=== PATIENT | male | born 1975 | race African-American/Black ===

== ENCOUNTER 2016-07-26 00:16 | Emergency (ER) | payer MEDICAID, OTHER ==
[~2016-07-26] VITALS: Ht 175.3 cm; Wt 127.0 kg
[2016-07-26] MEDS ORDERED: Nitroglycerin 2% oint pkt TOPIC ONE (00:45)
[2016-07-26] MEDS ORDERED: Ketorolac 30mg Inj IV ONE (00:45)
[2016-07-26 01:03] LABS: APPEARANCE,URINE CLEAR; KETONES,URINE 1+ (NEGATIVE); LEUKOCYTE ESTERASE ,URINE NEGATIVE (NEGATIVE); NITRITE,URINE NEGATIVE (NEGATIVE); PH,URINE 6 (4.5-8.0); PROTEIN,URINE NEGATIVE (NEGATIVE); UROBILINOGEN,URINE 1 MG/DL (0.0-1.0)
[2016-07-26 01:11] VITALS: BP 153/98
[2016-07-26 01:21] LABS: TROPONIN I < 0.30 ng/mL (<=0.30)
[2016-07-26 01:22] LABS: BASOPHILS % (AUTO) 1.4 % (0.0-2.0); EOSINOPHILS % (AUTO) 1.6 % (0.0-3.0); MEAN CORPUSCULAR HGB CONC 33.4 G/DL (32.0-36.0); MEAN CORPUSCULAR VOLUME 93 FL (80-99); MEAN PLATELET VOLUME 8.5 FL (6.5-10.1); MONOCYTES % (AUTO) 7.2 % (1.0-10.0); NEUTROPHILS % (AUTO) 68.8 % (45.0-75.0); PLATELET COUNT 276 K/UL (150-450); RED CELL DISTRIBUTION WIDTH 10.7 % (11.6-14.8); WHITE BLOOD COUNT 10.9 K/UL (4.8-10.8)
[2016-07-26 01:24] LABS: ALANINE AMINOTRANSFERASE 16 U/L (3-41); ALBUMIN/GLOBULIN RATIO 1.3 (1.0-2.7); ANION GAP 16 (5-15); ASPARTATE AMINO TRANSFERASE 14 U/L (5-40); CALCIUM 9.6 mg/dL (8.6-10.2); CARBON DIOXIDE 26 mEQ/L (20-30); CHLORIDE 94 mEQ/L (98-107); GLOMERULAR FILTRATION RATE > 60 mL/min (>60); HEMOLYSIS 9; SODIUM 136 mEQ/L (135-145); TOTAL PROTEIN 7.6 g/dL (6.6-8.7)
--- NOTE | 2016-07-26 02:24 | Emergency Room Report ---
History of Present Illness General Chief Complaint: Chest Pain Present Illness [facility] Chest pain started this AM. Non-exertional, sharp, 6/10, not radiate. No diaphoresis, NV. Had before. Also has R shoulder pain. Worsened with movement. 8/10, aching/sharp. Not radiate. Tender to palpation. No trauma. Had eval at hosp - told needed further studies (1 month ago). Not follow up. RF + pre-diabetic. No fever, cough, dyspnea, rashes, PAIZ, change bowels. Allergies: Coded Allergies: No Known Allergies (Unverified , 12/05/13) Patient History Past Medical History: see triage record Social History: Denies: smoking Social History Narrative culinary student Review of Systems All Other Systems: negative except mentioned in HPI Physical Exam Vital Signs Date Time Temp Pulse Resp B/P Pulse Ox O2 Delivery O2 Flow Rate FiO2 07/26/16 00:20 99.0 82 18 172/101 96 Room Air Sp02 EP Interpretation: reviewed, normal General Appearance: well appearing, no apparent distress, GCS 15 Head: normocephalic Eyes: bilateral eye PERRL, bilateral eye normal inspection ENT: moist mucus membranes Neck: supple Respiratory: lungs clear, normal breath sounds Cardiovascular #1: regular rate, rhythm Cardiovascular #2: 2+ radial (R) Gastrointestinal: normal inspection, normal bowel sounds, non tender, no mass, non-distended Musculoskeletal: back normal, gait/station normal, normal range of motion, other - tenderness to palpation R shoulder with some pain with active ROM and abduction Neurologic: alert, oriented x3 Psychiatric: mood/affect normal Skin: normal inspection, warm/dry, other - no warmth over shoulder Medical Decision Making Diagnostic Impression: Primary Impression: Chest pain Qualified Codes: R07.9 - Chest pain, unspecified Additional Impression: Right shoulder pain Qualified Codes: M25.511 - Pain in right shoulder ER Course Patient presents with atypical chest pain. DDx: ACS, AMI, GERD, pleurisy amongst others. Needs eval for ACS. Also has R shoulder pain. This needs eval with x-ray. Will treat with analgesics. Labs exclude myocardial damage. EKG normal. CXR normal. Improved with treatment. Doubt cardiac etiology. Patient stable for outpatient observation and treatment. Labs Test 07/26/16 00:45 White Blood Count 10.9 K/UL (4.8-10.8) Red Blood Count 5.70 M/UL (4.70-6.10) Hemoglobin 17.7 G/DL (14.2-18.0) Hematocrit 53.0 % (42.0-52.0) Mean Corpuscular Volume 93 FL (80-99) Mean Corpuscular Hemoglobin 31.0 PG (27.0-31.0) Mean Corpuscular Hemoglobin Concent 33.4 G/DL (32.0-36.0) Red Cell Distribution Width 10.7 % (11.6-14.8) Platelet Count 276 K/UL (150-450) Mean Platelet Volume 8.5 FL (6.5-10.1) Neutrophils (%) (Auto) 68.8 % (45.0-75.0) Lymphocytes (%) (Auto) 21.0 % (20.0-45.0) Monocytes (%) (Auto) 7.2 % (1.0-10.0) Eosinophils (%) (Auto) 1.6 % (0.0-3.0) Basophils (%) (Auto) 1.4 % (0.0-2.0) Prothrombin Time 10.0 SEC (9.30-11.50) Prothromb Time International Ratio 1.0 (0.9-1.1) Activated Partial Thromboplast Time 29 SEC (23-33) Urine Color Yellow Urine Appearance Clear Urine pH 6 (4.5-8.0) Urine Specific [place] 1.025 (1.005-1.035) Urine Protein Negative (NEGATIVE) Urine Glucose (UA) 2+ (NEGATIVE) Urine Ketones 1+ (NEGATIVE) Urine Occult Blood Negative (NEGATIVE) Urine Nitrite Negative (NEGATIVE) Urine Bilirubin Negative (NEGATIVE) Urine Urobilinogen 1 MG/DL (0.0-1.0) Urine Leukocyte Esterase Negative (NEGATIVE) Sodium Level 136 mEQ/L (135-145) Potassium Level 4.0 mEQ/L (3.4-4.9) Chloride Level 94 mEQ/L (98-107) Carbon Dioxide Level 26 mEQ/L (20-30) Anion Gap 16 (5-15) Blood Urea Nitrogen 13 mg/dL (7-23) Creatinine 1.0 mg/dL (0.7-1.2) Estimat Glomerular Filtration Rate > 60 mL/min (>60) Glucose Level 199 mg/dL (74-106) Calcium Level 9.6 mg/dL (8.6-10.2) Total Bilirubin 0.4 mg/dL (0.0-1.2) Aspartate Amino Transf (AST/SGOT) 14 U/L (5-40) Alanine Aminotransferase (ALT/SGPT) 16 U/L (3-41) Alkaline Phosphatase 69 U/L (40-129) Total Creatine Kinase 99 U/L (38-174) Troponin I < 0.30 ng/mL (<=0.30) Pro-B-Type Natriuretic Peptide 47 pg/mL (0-125) Total Protein 7.6 g/dL (6.6-8.7) Albumin 4.3 g/dL (3.5-5.2) Globulin 3.3 g/dL Albumin/Globulin Ratio 1.3 (1.0-2.7) Urine Opiates Screen Negative (NEGATIVE) Urine Barbiturates Screen Negative (NEGATIVE) Phencyclidine (PCP) Screen Negative (NEGATIVE) Urine Amphetamines Screen Negative (NEGATIVE) Urine Benzodiazepines Screen Negative (NEGATIVE) Urine Cocaine Screen Negative (NEGATIVE) Urine Marijuana (THC) Screen Negative (NEGATIVE) EKG Diagnostic Results Rate: normal Rhythm: NSR ST Segments: no acute changes Rhythm Strip Diag. Results EP Interpretation: yes Rhythm: NSR, no PVC's, no ectopy Chest X-Ray Diagnostic Results EP Interpretation: Yes Findings: no consolidation, no effusion, no pneumothorax, no acute cardiopulmonary disease Number of Views: 1 Other X-Ray Diagnostic Results Other X-Ray Diagnostic Results : X-Ray Ordered: R shoulder EP Interpretation: Yes Findings: no fractures, no dislocation, no soft tissue swelling Number of Views: 3 Last Vital Signs Date Time Temp Pulse Resp B/P Pulse Ox O2 Delivery O2 Flow Rate FiO2 07/26/16 03:10 77 18 158/88 94 Room Air 77 07/26/16 03:04 98.0 VS against PE. Status: improved Disposition: HOME, SELF-CARE Condition: Improved Scripts Ibuprofen* (MOTRIN*) 600 Mg Tablet 600 MG ORAL Q6H Y for For Pain, #20 TAB Prov: Jean Marie Casper M.D. 07/26/16 Tramadol Hcl* (ULTRAM*) 50 Mg Tablet 50 MG ORAL Q6H Y for For Pain, #14 TAB 0 Refills Prov: Jean Marie Casper M.D. 07/26/16 Referrals: [facility]ERR[facility] (PCP) Jean Marie Casper M.D. Jul 26, 2016 02:24
[2016-07-26 03:04] VITALS: BP 158/88
[2016-07-26] MEDS ORDERED: IBUPROFEN600 MG ORAL (03:04)
[2016-07-26] MEDS ORDERED: TRAMADOL HCL50 MG ORAL (03:04)
[2016-07-26 03:10] VITALS: BP 158/88
--- NOTE | 2016-07-26 09:19 | Diagnostic Imaging Report ---
Indications: Shoulder pain Technique: 3 views of the right shoulder Findings: Comparison: None No fracture, dislocation, lytic destruction, periosteal reaction, surrounding soft tissue swelling, or other acute change is demonstrated. Small spur inferior margin distal end right clavicle. No deformity, alignment abnormality, additional arthritic change, soft tissue calcification, or other chronic change is demonstrated. IMPRESSION: Minimal inferior margin spurring distal end right clavicle. Rotator cuff impingement not excludable. Otherwise negative right shoulder series.
--- NOTE | 2016-07-26 21:27 | Cardiology Report ---
APPROVED REPORT EKG Measurement Heart [id number] Normal sinus rhythm Normal ECG
--- NOTE | 2016-07-27 15:59 | Diagnostic Imaging Report ---
Indication: Chest pain Technique: Single portable AP view of the chest. Findings: Comparison: 12/05/2013 The bones and extra pulmonary soft tissues, cardiomediastinal silhouette, pulmonary vasculature and parenchyma, and pleural surfaces remain unremarkable. IMPRESSION: Negative portable AP chest, unchanged.
== END 2016-07-26 03:12 | disposition home or self-care (01) ==
LOC: EMR 01:49
DX: R07.89 Other chest pain (principal); M25.511 Pain in right shoulder
CPT/HCPCS: 36415; 71010; 73030; 80053; 80300; 81003; 82550; 83880; 84484; 85025; 85610; 85730; 93005; 96374; 99284; J1885

== ENCOUNTER 2017-01-02 14:43 | Emergency (ER) | payer OTHER ==
[~2017-01-02] VITALS: Ht 175.3 cm; Wt 122.5 kg
[~2017-01-02 14:43] MED LIST: IBUPROFEN600 MG ORAL; TRAMADOL HCL50 MG ORAL
[2017-01-02 14:47] VITALS: BP 147/97
[2017-01-02] MEDS ORDERED: NKM (14:47)
--- NOTE | 2017-01-02 15:23 | Emergency Room Report ---
History of Present Illness General Chief Complaint: Upper Respiratory Illness Source: Patient Present Illness HPI 41-year-old male presents emergency department complaining of painful productive cough, fevers, chills, wheezing , nasal congestion and sore throat x3 days he denies taking medications for his symptoms. he does not know if he had a flu vaccination this year patient denies past medical history other than being prediabetic. Pt denies CP at rest, reports pain only with coughing. pt. describes deep or normal inhalation exacerbates coughing, and short breaths do not illicit his cough. Denies ill contacts or recent travel. Denies Palpitations, LOC, AMS, dizziness, Changes in Vision, Sensation, paresthesias, or a sudden severe headache. Allergies: Coded Allergies: No Known Allergies (Unverified , 12/05/13) Patient History Past Medical History: see triage record Past Surgical History: none Pertinent Family History: none Reviewed Nursing Documentation: PMH: Agreed, PSxH: Agreed Nursing Documentation-PMH Past Medical History: No Stated History Review of Systems All Other Systems: negative except mentioned in HPI Physical Exam Vital Signs Date Time Temp Pulse Resp B/P Pulse Ox O2 Delivery O2 Flow Rate FiO2 01/02/17 14:47 98.4 104 18 147/97 96 Room Air Sp02 EP Interpretation: reviewed, abnormal - mild tachycardia 104 bpm General Appearance: no apparent distress, alert, GCS 15, non-toxic Head: normocephalic, atraumatic Eyes: bilateral eye PERRL, bilateral eye normal inspection ENT: hearing grossly normal, normal pharynx, no angioedema, normal voice, TMs + canals normal, uvula midline, moist mucus membranes, pharyngeal erythema, other - no tonsillar exudates Neck: full range of motion, supple/symm/no masses Respiratory: chest non-tender, normal breath sounds, speaking full sentences, wheezing Cardiovascular #1: regular rate, rhythm, no edema, normal capillary refill Musculoskeletal: back normal, gait/station normal, normal range of motion, non- tender Neurologic: alert, oriented x3, responsive, motor strength/tone normal, sensory intact, speech normal Psychiatric: judgement/insight normal, memory normal, mood/affect normal Skin: normal color, no rash, warm/dry, well hydrated Lymphatic: no adenopathy Medical Decision Making PA Attestation Dr. Vargas is my supervising Physician whom patient management has been discussed with. Diagnostic Impression: Primary Impression: Bronchitis ER Course 41-year-old male presents emergency department complaining of productive cough, fevers, chills, wheezing and difficulty breathing x3 days he denies taking any medications for his symptoms he does not know if he had a flu vaccination this year patient denies past medical history other than being prediabetic. Denies ill contacts or recent travel. Denies CP, Palpitations, LOC, AMS, dizziness, Changes in Vision, Sensation, paresthesias, or a sudden severe headache. Ddx considered but are not limited to URI, pneumonia, PE, strep pharyngitis, meningitis, bronchitis Vital signs: Pt. is afebrile, the remaining VS are WNL: initial triage HR was mild tachycardic at 104bpm, however subsequent measurements were of normal rate. H&PE are most consistent with URI- Bronchitis with scant wheezes auscultated bilaterally, no meningeal signs, oropharynx is not involved, no evidence of bacterial infection at this time. due to presence of multiples symptoms and no CP at rest, cardiac cause is unlikely, i do not suspect PE at this time - not consistent with HPI and pt. has other more likely diagnosis. ORDERS: -CXR:No consolidation, effusion, pneumothorax or acute cardiopulmonary findings per soft read in ED by Dr. Vargas ED INTERVENTIONS: -Albuterol Nebulized Treatment. - lung sounds have improved bilaterally after nebulized treatment. d/w pt that he will be treated conservatively for URI/bronchitis, and that I do not feel antibiotics would be of benefit at this time. d/w pt. to return to the ED promptly if he feels his symptoms are becoming worse, or new symptoms develop. - Pt verbalized his understanding, and agreement with this treatment plan. DISCHARGE: At this time pt. is stable for d/c to home. Will provide printed patient care instructions, and any necessary prescriptions. Care plan and follow up instructions have been discussed with the patient prior to discharge. Last Vital Signs Date Time Temp Pulse Resp B/P Pulse Ox O2 Delivery O2 Flow Rate FiO2 01/02/17 14:47 104 18 Room Air 01/02/17 14:47 98.4 147/97 96 Disposition: HOME, SELF-CARE Condition: Stable Scripts Acetaminophen* (TYLENOL EXTRA STRENGTH*) 500 Mg Tablet 500 MG ORAL Q6H, #20 TAB 0 Refills Prov: Michel,Alessandra P.A. 01/02/17 Albuterol Sulfate* (ALBUTEROL SULFATE MDI*) 8.5 Gm Hfa.aer.ad 2 PUFF INH Q3H, #1 INH 0 Refills Prov: Alessandra Michel 01/02/17 Codeine/Promethazine Hcl* (PROMETHAZINE-CODEINE SYRUP*) 118 Ml Syrup 5 ML ORAL Q6H Y for For Cough, #118 ML 0 Refills Prov: Alessandra Michel 01/02/17 Patient Instructions: Upper Respiratory Infection, Adult Additional Instructions: Take medications as directed. Follow up with PCP in 3-5 days Return sooner to ED if new symptoms occur, or current symptoms become worse. - Please note that this Emergency Department Report was dictated using [employer] range operator technology software, occasionally this can lead to erroneous entry secondary to interpretation by the dictation equipment. Alessandra Michel Jan 02, 2017 15:23
[2017-01-02] MEDS ORDERED: Albuterol ud Inhalation HHN ONE (15:30)
[2017-01-02] MEDS ORDERED: ALBUTEROL SULF8.5 GM INH (15:59)
[2017-01-02] MEDS ORDERED: PROMETHAZINE-C118 M1 ORAL (15:59)
[2017-01-02] MEDS ORDERED: TYLENOL EXTRA500 MG ORAL (15:59)
[2017-01-02 16:05] VITALS: BP 133/88
--- NOTE | 2017-01-03 11:05 | Diagnostic Imaging Report ---
Indication: COUGH Technique: One view of the chest Comparison: 07/26/2016 Findings: Lungs and pleural spaces are clear. Heart size is normal. No significant change Impression: No acute process
== END 2017-01-02 16:05 | disposition home or self-care (01) ==
LOC: EMR 15:55
DX: J40 Bronchitis, not specified as acute or chronic (principal)
CPT/HCPCS: 71010; 94640; 99284

== ENCOUNTER 2017-06-08 19:39 | Emergency (ER) | payer MEDICAID, OTHER ==
[~2017-06-08] VITALS: Ht 175.3 cm; Wt 127.0 kg
[~2017-06-08 19:39] MED LIST changes: +ALBUTEROL SULF8.5 GM INH; +NKM; +PROMETHAZINE-C118 M1 ORAL; +TYLENOL EXTRA500 MG ORAL
[2017-06-08 20:33] VITALS: BP 159/114
--- NOTE | 2017-06-08 20:38 | Emergency Room Report ---
History of Present Illness General Chief Complaint: Chest Pain Source: Patient Present Illness HPI 41-year-old male no significant past medical history p/w chest pain for 2 days. Chest pain started while at rest. Localized to substernal area, no radiation to back or other areas, sharp in nature, gradual in onset, last about 10-15 minutes , multiple episodes. Occurred on rest and on exertion. Denies SOB. Denies palpitations, diaphoresis, n/v. This is the first occurrence of chest pain. Denies fever, chills, cough, abd pain. Denies trauma. Patient states that he has had a stress test in the past but does not know the results Patient has never had a cardiac catheterization. Denies smoking, no family history of cardiac disease at a young age. Allergies: Coded Allergies: No Known Allergies (Unverified , 12/05/13) Patient History Past Medical History: see triage record Past Surgical History: none Pertinent Family History: none Reviewed Nursing Documentation: PMH: Agreed, PSxH: Agreed Nursing Documentation-PMH Past Medical History: No Stated History Review of Systems All Other Systems: negative except mentioned in HPI Physical Exam Vital Signs Date Time Temp Pulse Resp B/P (MAP) Pulse Ox O2 Delivery O2 Flow Rate FiO2 06/08/17 19:52 97.9 84 20 159/114 98 Room Air Sp02 EP Interpretation: reviewed, normal General Appearance: normal inspection, well appearing, no apparent distress, alert, GCS 15, non-toxic, other - Does not appear to be in pain Head: normocephalic, atraumatic Eyes: bilateral eye normal inspection, bilateral eye PERRL, bilateral eye EOMI ENT: normal ENT inspection, normal pharynx, normal voice, moist mucus membranes Neck: normal inspection, full range of motion, supple Respiratory: normal inspection, lungs clear, normal breath sounds, no respiratory distress, no retraction, no wheezing, speaking full sentences, chest symmetrical Cardiovascular #1: normal inspection, regular rate, rhythm, normal capillary refill Cardiovascular #2: 2+ radial (R), 2+ radial (L) Gastrointestinal: normal inspection, non tender, soft, non-distended, no guarding Musculoskeletal: normal inspection, back normal, normal range of motion, non- tender Neurologic: normal inspection, alert, oriented x3, responsive, motor strength/ tone normal, sensory intact, normal gait, speech normal Psychiatric: normal inspection, judgement/insight normal, memory normal Skin: normal inspection, normal color, no rash, warm/dry, well hydrated, normal turgor Medical Decision Making Diagnostic Impression: Primary Impression: Chest pain ER Course 41-year-old male, chest pain for 2 days DDX: Musculoskeletal versus ACS vs. CHF vs. pneumonia vs. gastritis/GERD vs. pneumothorax PE on differential however at this time there are other more likely diagnoses. The patient appears nontoxic at this time, does not appear to be in pain, not hypertensive, no radiation to back, unlikely to have aortic dissection Plan: IV access, obtain labs including troponin, EKG, CXR ASA ER course: Labs: troponin negative Patient given ASA. Patient remained chest pain free during ED stay. Sleeping comfortably Disposition: Patient will be discharged to home. Strict precautions discussed with patient on when to emergently return to the ED : this includes worsening/severe chest pain, palpitations, shortness of breath, syncopal episodes, fever or chills, which may indicate severe illness. Patient verbalized understanding. Patient instructed to follow up with their PMD within the next 2 days. Patient also instructed to follow up with a doper within 2 days for possible outpatient stress test. Patient agrees with plan. Please note that this Emergency Department Report was dictated using [employer] machine operator technology software, occasionally this can lead to erroneous entry secondary to interpretation by the dictation equipment. EKG Diagnostic Results EP Interpretation: Yes Rate: normal Rhythm: NSR ST Segments: Q waves III ASA given to patient: no Rhythm Strip EP Interpretation: Yes Rate: 70 Rhythm: NSR, no PVCs, no ectopy Chest X-ray CXR: Ordered: Yes 1 view Indication: Chest pain EP interpretation: Yes Interpretation: No consolidation, no effusion, no PTX, no acute cardiopulmonary disease Impression: No acute disease Electronically signed by Aydee Jones MD Laboratory Tests Test 06/08/17 20:26 White Blood Count 5.9 K/UL (4.8-10.8) Red Blood Count 5.35 M/UL (4.70-6.10) Hemoglobin 16.9 G/DL (14.2-18.0) Hematocrit 50.6 % (42.0-52.0) Mean Corpuscular Volume 95 FL (80-99) Mean Corpuscular Hemoglobin 31.7 PG (27.0-31.0) H Mean Corpuscular Hemoglobin Concent 33.5 G/DL (32.0-36.0) Red Cell Distribution Width 10.6 % (11.6-14.8) L Platelet Count 210 K/UL (150-450) Mean Platelet Volume 8.9 FL (6.5-10.1) Neutrophils (%) (Auto) 50.4 % (45.0-75.0) Lymphocytes (%) (Auto) 35.5 % (20.0-45.0) Monocytes (%) (Auto) 8.8 % (1.0-10.0) Eosinophils (%) (Auto) 3.4 % (0.0-3.0) H Basophils (%) (Auto) 1.9 % (0.0-2.0) Urine Color Pale yellow Urine Appearance Clear Urine pH 5 (4.5-8.0) Urine Specific [place] 1.020 (1.005-1.035) Urine Protein Negative (NEGATIVE) Urine Glucose (UA) 4+ (NEGATIVE) H Urine Ketones 1+ (NEGATIVE) H Urine Occult Blood 1+ (NEGATIVE) H Urine Nitrite Negative (NEGATIVE) Urine Bilirubin Negative (NEGATIVE) Urine Urobilinogen Normal MG/DL (0.0-1.0) Urine Leukocyte Esterase Negative (NEGATIVE) Urine RBC 0-2 /HPF (0 - 0) H Urine WBC 0-2 /HPF (0 - 0) Urine Squamous Epithelial Cells None /LPF (NONE/OCC) Urine Bacteria Few /HPF (NONE) Sodium Level 135 MMOL/L (136-145) L Potassium Level 3.8 MMOL/L (3.5-5.1) Chloride Level 98 MMOL/L (98-107) Carbon Dioxide Level 28 MMOL/L (21-32) Anion Gap 9 mmol/L (5-15) Blood Urea Nitrogen 15 mg/dL (7-18) Creatinine 1.2 MG/DL (0.55-1.30) Estimate Glomerular Filtration Rate > 60 mL/min (>60) Glucose Level 349 MG/DL (74-106) H Calcium Level 9.0 MG/DL (8.5-10.1) Total Bilirubin 0.5 MG/DL (0.2-1.0) Aspartate Amino Transferase (AST) 12 U/L (15-37) L Alanine Aminotransferase (ALT) 27 U/L (12-78) Alkaline Phosphatase 77 U/L (46-116) Troponin I 0.000 ng/mL (0.000-0.056) Pro-B-Type Natriuretic Peptide 10 pg/mL (0-125) Total Protein 7.4 G/DL (6.4-8.2) Albumin 3.7 G/DL (3.4-5.0) Globulin 3.7 g/dL Albumin/Globulin Ratio 1.0 (1.0-2.7) Last Vital Signs Date Time Temp Pulse Resp B/P (MAP) Pulse Ox O2 Delivery O2 Flow Rate FiO2 06/08/17 20:33 97.9 20 159/114 98 Room Air 06/08/17 20:33 84 Aydee Jones M.D. Jun 08, 2017 20:38
[2017-06-08 20:52] LABS: BASOPHILS % (AUTO) 1.9 % (0.0-2.0); EOSINOPHILS % (AUTO) 3.4 % (0.0-3.0); LYMPHOCYTES % (AUTO) 35.5 % (20.0-45.0); MEAN CORPUSCULAR HEMOGLOBIN 31.7 PG (27.0-31.0); MEAN CORPUSCULAR HGB CONC 33.5 G/DL (32.0-36.0); MEAN CORPUSCULAR VOLUME 95 FL (80-99); MEAN PLATELET VOLUME 8.9 FL (6.5-10.1); MONOCYTES % (AUTO) 8.8 % (1.0-10.0); NEUTROPHILS % (AUTO) 50.4 % (45.0-75.0); PLATELET COUNT 210 K/UL (150-450); RED BLOOD COUNT 5.35 M/UL (4.70-6.10); RED CELL DISTRIBUTION WIDTH 10.6 % (11.6-14.8); WHITE BLOOD COUNT 5.9 K/UL (4.8-10.8)
[2017-06-08 20:53] LABS: APPEARANCE,URINE CLEAR; KETONES,URINE 1+ (NEGATIVE); LEUKOCYTE ESTERASE ,URINE NEGATIVE (NEGATIVE); NITRITE,URINE NEGATIVE (NEGATIVE); PH,URINE 5 (4.5-8.0); PROTEIN,URINE NEGATIVE (NEGATIVE); UROBILINOGEN,URINE NORMAL MG/DL (0.0-1.0)
[2017-06-08 20:56] LABS: ANION GAP 9 mmol/L (5-15); CARBON DIOXIDE 28 MMOL/L (21-32); CHLORIDE 98 MMOL/L (98-107); CREATININE 1.2 MG/DL (0.55-1.30); GLOMERULAR FILTRATION RATE > 60 mL/min (>60); POTASSIUM 3.8 MMOL/L (3.5-5.1); SODIUM 135 MMOL/L (136-145)
[2017-06-08 21:07] LABS: ALANINE AMINOTRANSFERASE 27 U/L (12-78); ASPARTATE AMINO TRANSFERASE 12 U/L (15-37); TOTAL PROTEIN 7.4 G/DL (6.4-8.2)
[2017-06-08 21:14] LABS: BACTERIA,URINE FEW /HPF; RBC,URINE 0-2 /HPF (0 - 0); WBC,URINE 0-2 /HPF (0 - 0)
--- NOTE | 2017-06-09 10:37 | Diagnostic Imaging Report ---
Indication: Chest pain Technique: One view of the chest Comparison: 01/02/2017 Findings: Lungs and pleural spaces are clear. Heart size is normal. No significant change Impression: No acute process
--- NOTE | 2017-06-11 16:22 | Cardiology Report ---
APPROVED REPORT EKG Measurement Heart [id number] ND [id number] Normal sinus rhythm Possible Inferior infarct, age undetermined Abnormal ECG
== END 2017-06-08 21:45 | disposition home or self-care (01) ==
LOC: EMR 20:00
DX: R07.89 Other chest pain (principal)
CPT/HCPCS: 36415; 71010; 80053; 81003; 83880; 84484; 85025; 93005; 99284

== ENCOUNTER 2017-09-23 10:42 | Emergency (ER) | payer MEDICAID ==
[~2017-09-23] VITALS: Ht 175.3 cm; Wt 127.0 kg
[2017-09-23 10:59] VITALS: BP 157/100
[2017-09-23] MEDS ORDERED: Albuterol ud Inhalation HHN ONE (11:15)
--- NOTE | 2017-09-23 11:56 | Emergency Room Report ---
History of Present Illness General Chief Complaint: Flu Like Symptoms Source: Patient Present Illness HPI 42-year-old male presents with 2-3 days of dry cough, fever and shaking chills at home. Associated with URI symptoms including cough, rhinorrhea, sore throat Denies history of asthma however states that he frequently gets acute bronchitis Nonsmoker. denies any sick contacts . Allergies: Coded Allergies: No Known Allergies (Unverified , 12/05/13) Patient History Past Medical History: none Past Surgical History: none Pertinent Family History: none Social History: Denies: smoking, alcohol use, drug use Immunizations: UTD Reviewed Nursing Documentation: PMH: Agreed, PSxH: Agreed Nursing Documentation-PMH Past Medical History: No History, Except For Review of Systems All Other Systems: negative except mentioned in HPI Physical Exam Vital Signs Date Time Temp Pulse Resp B/P (MAP) Pulse Ox O2 Delivery O2 Flow Rate FiO2 09/23/17 10:49 98.7 93 16 157/100 87 Room Air 98.8 09/23/17 11:37 21 Sp02 EP Interpretation: reviewed, normal General Appearance: normal inspection, well appearing, no apparent distress, alert, GCS 15, non-toxic Head: normocephalic, atraumatic Eyes: bilateral eye PERRL, bilateral eye EOMI ENT: normal ENT inspection, hearing grossly normal, normal pharynx, no angioedema, normal voice, TMs + canals normal, uvula midline, moist mucus membranes Neck: normal inspection, full range of motion, supple, thyroid normal, no meningismus, no bony tend Respiratory: normal inspection, no respiratory distress, no retraction, no accessory muscle use, speaking full sentences, wheezing Cardiovascular #1: regular rate, rhythm, no edema, no JVD, normal capillary refill Gastrointestinal: normal inspection, normal bowel sounds, non tender, soft, no mass, no peritonitis, non-distended, no guarding, no hernia, no pulsatile mass Genitourinary: no CVA tenderness Musculoskeletal: normal inspection, back normal, normal range of motion, no calf tenderness, pelvis stable, Lo's Sign negative Neurologic: normal inspection, alert, oriented x3, responsive, fluxer III-XII nml as tested, motor strength/tone normal, cerebellar normal, normal gait, speech normal Psychiatric: normal inspection, judgement/insight normal, mood/affect normal, no suicidal/homicidal ideation, no delusions Skin: normal inspection, normal color, no rash Lymphatic: normal inspection, no adenopathy Medical Decision Making Diagnostic Impression: Primary Impression: Cough Additional Impression: Acute bronchitis Qualified Codes: J20.9 - Acute bronchitis, unspecified ER Course 42-year-old male With 2-3 days of dry cough and subjective fevers and chills Chest x-ray negative for pneumonia Feels better after steroids and albuterol inhaler treatment likely acute bronchitis from URI, viral However I am concerned for CAP given subjective fevers and chills at home Will treat also with antibiotics ER course: Patient has remained stable during ED stay. Disposition: Patient is to be discharged to home. Prescriptions given are ventolin, z-pack, prednisone Patient is instructed to follow up with their primary care doctor within 5 days. Strict return precautions discussed with patient such as fever, chills, worsening/severe pain, nausea, vomiting, which may indicate severe illness. Patient verbalizes understanding and agrees with plan. Please note that this Emergency Department Report was dictated using [employer] tank operator technology software, occasionally this can lead to erroneous entry secondary to interpretation by the dictation equipment Chest X-Ray Diagnostic Results Chest X-Ray Diagnostic Results : Chest X-Ray Ordered: Yes # of Views/Limited/Complete: 1 View Indication: Shortness of Breath EP Interpretation: Yes Interpretation: no consolidation, no effusion, no pneumothorax, no acute cardiopulmonary disease Impression: No acute disease Electronically Signed by: Dr Clem Faye MD Last Vital Signs Date Time Temp Pulse Resp B/P (MAP) Pulse Ox O2 Delivery O2 Flow Rate FiO2 09/23/17 11:37 21 09/23/17 11:37 81 18 100 Room Air 09/23/17 10:59 98.8 157/100 98.8 Status: improved Disposition: HOME, SELF-CARE Referrals: [facility],REFERR[facility] (PCP) CLEM FAYE M.D. Sep 23, 2017 11:56
[2017-09-23] MEDS ORDERED: VENTOLIN HFA18 GM INH (11:58)
[2017-09-23] MEDS ORDERED: PREDNISONE20 MG ORAL (11:58)
[2017-09-23] MEDS ORDERED: ZITHROMAX250 MG ORAL (11:58)
[2017-09-23 12:00] VITALS: BP 157/100
--- NOTE | 2017-09-23 12:34 | Diagnostic Imaging Report ---
Indication: Cough Technique: One view of the chest Comparison: 06/08/2017 Findings: Lungs and pleural spaces are clear. Heart size is normal . No significant interim change Impression: No acute process
== END 2017-09-23 12:05 | disposition home or self-care (01) ==
LOC: EMR 11:12
DX: J20.9 Acute bronchitis, unspecified (principal)
CPT/HCPCS: 71045; 94640; 99283; J7512

== ENCOUNTER 2017-11-17 02:50 | Emergency (ER) | payer MEDICAID ==
[~2017-11-17] VITALS: Ht 175.3 cm; Wt 127.0 kg
[~2017-11-17 02:50] MED LIST changes: +PREDNISONE20 MG ORAL; +VENTOLIN HFA18 GM INH; +ZITHROMAX250 MG ORAL
--- NOTE | 2017-11-17 03:01 | Emergency Room Report ---
History of Present Illness General Chief Complaint: Chest Pain Source: Patient Present Illness HPI Patient presents with left-sided chest pain. It started just before paramedics were called. He was sitting down and going to lay down. It's left-sided radiates towards his back. He's been evaluated for chest pain like this before. Paramedics gave the patient aspirin and nitroglycerin. His blood pressure dropped to normal. They felt that there might of been a component of anxiety. His EKG showed no acute injury. The pain radiates to his L shoulder. Pain rated 5/10 now. Patient denies DM, HTN, family history CAD, elevated cholesterol. No fevers, chills, cough, sore throat, rashes, headache, NVD, epigastric pain, indigestion, dysuria. There is some stress at this time. Allergies: Coded Allergies: No Known Allergies (Unverified , 12/05/13) Patient History Past Medical History: see triage record Social History: Denies: smoking Social History Narrative completed culinary school and unemployed Reviewed Nursing Documentation: PMH: Agreed; PSxH: Agreed Nursing Documentation-PMH Past Medical History: No Stated History Review of Systems All Other Systems: negative except mentioned in HPI Physical Exam Vital Signs Date Time Temp Pulse Resp B/P (MAP) Pulse Ox O2 Delivery O2 Flow Rate FiO2 11/17/17 02:42 98.5 88 18 118/90 98 Room Air 98.4 Sp02 EP Interpretation: reviewed, normal General Appearance: well appearing, no apparent distress, GCS 15 Head: normocephalic Eyes: bilateral eye normal inspection, bilateral eye PERRL ENT: moist mucus membranes Neck: supple Respiratory: lungs clear, normal breath sounds, other - some CWT Cardiovascular #1: regular rate, rhythm Cardiovascular #2: 2+ radial (R) Gastrointestinal: normal inspection, normal bowel sounds, non tender, no mass, non-distended, overweight Musculoskeletal: back normal, gait/station normal, normal range of motion Neurologic: alert, oriented x3, grossly normal Psychiatric: mood/affect normal Skin: normal inspection, warm/dry Medical Decision Making Diagnostic Impression: Primary Impression: Chest pain Qualified Codes: R07.9 - Chest pain, unspecified Additional Impression: Hyperglycemia ER Course Patient presents with chest pain. The history is somewhat atypical. He really has no risk factors. He was treated with aspirin and nitrates in the field. Differential includes acute myocardial infarction, acute coronary syndrome, anxiety, chest wall pain, GERD, gastritis amongst others. He will be evaluated with EKG, chest x-ray and labs. Treated with Pepcid as he already received treatment in the field. EKG no injury. CXR normal. Labs significant for elevated glucose and negative troponin. Metformin given (new diagnosis). Discussed diabetes dx with patient and treatment plan. Improved with observation. He reported pain improved to me. Patient stable for outpatient observation and treatment. Laboratory Tests Test 11/17/17 03:05 White Blood Count 6.6 K/UL (4.8-10.8) Red Blood Count 5.34 M/UL (4.70-6.10) Hemoglobin 18.0 G/DL (14.2-18.0) Hematocrit 48.5 % (42.0-52.0) Mean Corpuscular Volume 91 FL (80-99) Mean Corpuscular Hemoglobin 33.7 PG (27.0-31.0) H Mean Corpuscular Hemoglobin Concent 37.1 G/DL (32.0-36.0) H Red Cell Distribution Width 10.1 % (11.6-14.8) L Platelet Count 211 K/UL (150-450) Mean Platelet Volume 8.7 FL (6.5-10.1) Neutrophils (%) (Auto) 52.1 % (45.0-75.0) Lymphocytes (%) (Auto) 37.0 % (20.0-45.0) Monocytes (%) (Auto) 6.5 % (1.0-10.0) Eosinophils (%) (Auto) 2.6 % (0.0-3.0) Basophils (%) (Auto) 1.8 % (0.0-2.0) Sodium Level 131 MMOL/L (136-145) L Potassium Level 3.8 MMOL/L (3.5-5.1) Chloride Level 98 MMOL/L (98-107) Carbon Dioxide Level 28 MMOL/L (21-32) Anion Gap 5 mmol/L (5-15) Blood Urea Nitrogen 16 mg/dL (7-18) Creatinine 1.1 MG/DL (0.55-1.30) Estimate Glomerular Filtration Rate > 60 mL/min (>60) Glucose Level 312 MG/DL (74-106) H Calcium Level 7.9 MG/DL (8.5-10.1) L Total Bilirubin 0.8 MG/DL (0.2-1.0) Aspartate Amino Transferase (AST) 11 U/L (15-37) L Alanine Aminotransferase (ALT) < 6 U/L (12-78) L Alkaline Phosphatase 85 U/L (46-116) Total Creatine Kinase 102 U/L (26-308) Troponin I 0.000 ng/mL (0.000-0.056) Total Protein 7.8 G/DL (6.4-8.2) Albumin 3.5 G/DL (3.4-5.0) Globulin 4.3 g/dL Urine Opiates Screen Negative (NEGATIVE) Urine Barbiturates Screen Negative (NEGATIVE) Phencyclidine (PCP) Screen Negative (NEGATIVE) Urine Amphetamines Screen Negative (NEGATIVE) Urine Benzodiazepines Screen Negative (NEGATIVE) Urine Cocaine Screen Negative (NEGATIVE) Urine Marijuana (THC) Screen Negative (NEGATIVE) EKG Diagnostic Results Rate: normal Rhythm: NSR ST Segments: no acute changes Rhythm Strip Diag. Results EP Interpretation: yes Rhythm: NSR, no PVC's, no ectopy Chest X-Ray Diagnostic Results Chest X-Ray Diagnostic Results : Chest X-Ray Ordered: Yes # of Views/Limited/Complete: 1 View Indication: Chest Pain EP Interpretation: Yes Interpretation: no consolidation, no effusion, no pneumothorax Impression: No acute disease Electronically Signed by: Electronically signed by Jean Marie Casper MD Last Vital Signs Date Time Temp Pulse Resp B/P (MAP) Pulse Ox O2 Delivery O2 Flow Rate FiO2 11/17/17 06:00 66 18 148/83 98 Room Air 11/17/17 06:00 98.4 98.4 Status: improved Disposition: HOME, SELF-CARE Condition: Improved Scripts Blood-Glucose Meter, Drum-Type (ACCU-CHEK) 1 Each Kit EACH DAILY, #1 Prov: Jean Marie Casper M.D. 11/17/17 Lancing Device/Lancets (ACCU-CHEK SOFTCLIX LANCET KIT) 1 Each Kit EACH , #30 Prov: Jean Marie Casper M.D. 11/17/17 Ibuprofen* (MOTRIN*) 600 Mg Tablet 600 MG ORAL Q6H PRN for For Pain, #20 TAB Prov: Jean Marie Casper M.D. 11/17/17 Metformin Hcl* (METFORMIN HCL*) 500 Mg Tablet 500 MG ORAL TWICE A DAY, #60 TAB Prov: Jean Marie Casper M.D. 11/17/17 Jean Marie Casper M.D. November 17, 2017 03:01
[2017-11-17 03:10] VITALS: BP 118/90
[2017-11-17 03:24] LABS: BASOPHILS % (AUTO) 1.8 % (0.0-2.0); EOSINOPHILS % (AUTO) 2.6 % (0.0-3.0); HEMATOCRIT 48.5 % (42.0-52.0); MEAN CORPUSCULAR VOLUME 91 FL (80-99); MONOCYTES % (AUTO) 6.5 % (1.0-10.0); NEUTROPHILS % (AUTO) 52.1 % (45.0-75.0); PLATELET COUNT 211 K/UL (150-450); RED BLOOD COUNT 5.34 M/UL (4.70-6.10); RED CELL DISTRIBUTION WIDTH 10.1 % (11.6-14.8); WHITE BLOOD COUNT 6.6 K/UL (4.8-10.8)
[2017-11-17 03:30] LABS: ANION GAP 5 mmol/L (5-15); BLOOD UREA NITROGEN 16 mg/dL (7-18); CALCIUM 7.9 MG/DL (8.5-10.1); CARBON DIOXIDE 28 MMOL/L (21-32); CHLORIDE 98 MMOL/L (98-107); CREATININE 1.1 MG/DL (0.55-1.30); POTASSIUM 3.8 MMOL/L (3.5-5.1); SODIUM 131 MMOL/L (136-145)
[2017-11-17 03:35] LABS: ALANINE AMINOTRANSFERASE < 6 U/L (12-78); ALBUMIN 3.5 G/DL (3.4-5.0); ALKALINE PHOSPHATASE 85 U/L (46-116); ASPARTATE AMINO TRANSFERASE 11 U/L (15-37); BILIRUBIN,TOTAL 0.8 MG/DL (0.2-1.0); CREATINE KINASE 102 U/L (26-308)
[2017-11-17] MEDS ORDERED: IBUPROFEN600 MG ORAL (05:49)
[2017-11-17] MEDS ORDERED: METFORMIN HCL500 M1 ORAL (05:49)
[2017-11-17] MEDS ORDERED: ACCU-CHEK SOFT1 EACH MC (05:49)
[2017-11-17] MEDS ORDERED: ACCU-CHEK1 EAC5 MC (05:49)
[2017-11-17 06:00] VITALS: BP 148/83
--- NOTE | 2017-11-17 11:12 | Diagnostic Imaging Report ---
Indication: Chest pain Comparison: 09/23/2017 A single view chest radiograph was obtained. Findings: Cardiomediastinal appearance is within normal limits for age. Pulmonary vascularity is appropriate. The diaphragmatic contour is smooth and costophrenic angles are sharp. No pleural effusions are identified. The bones are unremarkable. Impression: No acute findings
--- NOTE | 2017-11-17 18:11 | Cardiology Report ---
APPROVED REPORT EKG Measurement Heart [id number] Normal sinus rhythm Normal ECG
== END 2017-11-17 06:00 | disposition home or self-care (01) ==
LOC: EDBD 02:50 → EMR 02:52
DX: R07.9 Chest pain, unspecified (principal); R73.9 Hyperglycemia, unspecified
CPT/HCPCS: 36415; 71045; 80053; 80307; 82550; 82962; 84484; 85025; 93005; 96374; 96375; 99284; S0028